=== PATIENT | male | born 1980 | race African-American/Black ===

== ENCOUNTER → 2016-09-19 | Outpatient (CLI) | payer OTHER ==
--- NOTE | 2016-09-29 02:13 | ECWPNPC ---
PATIENT NAME: BARBARA ANDERSON : 1980 GENDER: MALE VISIT DATE: 09/19/2016 DISCHARGE DATE: 09/19/16 1348 VISIT LOCKED DATE TIME: PHYSICIAN: ANUP GLOVER RESOURCE: ANUP GLOVER REASON FOR APPOINTMENT 1. NECK PAIN HISTORY OF PRESENT ILLNESS HISTORY OF PRESENT ILLNESS: PAIN THE PATIENT DESCRIBES THE PAIN... THE PATIENT DESCRIBES THE PAIN... 36 YEAR OLD MALE PATIENT WITH CHRONIC NECK PAIN. PATIENT DESCRIBES THE PAIN ACHING AND SORE WITH A PAIN SCORE OF 7/10. THE PATIENT RECEIVED A CERVICAL FACET BLOCK LEFT ON 07/24/2016, PATIENT STATES HIS PAIN SCORE WAS 7/10 PRE INJECTION AND 5/10 POST INJECTION. THE PATIENT RECEIVED A CERVICAL FACET BLOCK RIGHT ON 07/26/2016, PATIENT STATES HIS PAIN SCORE WAS 6/10 PRE INJECTION AND 5/10 POST INJECTION. PATIENT REPORTS OF HAVING SOME PAIN RELIEF FROM THE INJECTION. PATIENT ALSO REPORTS THAT HIS PAIN SCORE WENT UP TO A 8/10 WHEN HE PUT A HELMET ON AT WORK. PATIENT STATES THAT WHEN HIS NECK PAIN GOES DOWN, HIS HEADACHES ALSO GO DOWN. PATIENT STATES THAT HIS NECK PAIN RADIATES TO HIS HEAD. PATIENT REPORTS OF HAVING MORE PATIENT RELIEF WITH THE FACET BLOCKS COMPARED TO THE EPIDURALS HE HAS RECEIVED IN THE PAST. PATIENT DENIES UNEXPLAINABLE WEIGHT LOSS, FEVER, CHILLS, NEW CHANGES ON HIS URINARY OR BOWEL CONTROL. RATING PAIN VAS 6/10.PAIN RADIATES FROM NECK UP OCCIPITA NERVE ROUTE AND CAUSES SEVERE OCCIPITAL HEADACHE.THIS IS AGGREVATED WHEN HE PUTS ON [employer] HELMET.DISCUSSED TREATMENT OPTIONS. FALL RISK SCREENING: SCREENING :NO FALLS IN THE PAST YEAR CURRENT MEDICATIONS TAKING CYCLOBENZAPRINE HCL 10 MG TABLET 1 TABLET ORALLY THREE TIMES A DAY NEEDED FOR SPASMS AND PAIN TAKING NORTRIPTYLINE HCL 25 MG CAPSULE (PRIOR AUTH: RX REF#:[id number]) ORALLY AT BEDTIME TAKING ZONISAMIDE 100 MG CAPSULE (PRIOR AUTH: RX REF#:[id number]) ORALLY BID TAKING IBUPROFEN 800 MG TABLET 1 TAB ORALLY BID NEEDED TAKING TIZANIDINE HCL 2 MG TABLET 1 TABLET NEEDED ORALLY TWICE DAILY TAKING BUPROPION HCL 75 MG TABLET 2 TABLETS ORALLY TWICE A DAY TAKING BUSPIRONE HCL 10 MG TABLET 1 TABLET ORALLY TWICE A DAY TAKING VIAGRA 100 MG TABLET 1 TABLET ORALLY ONCE A DAY NEEDED TAKING SERTRALINE HCL 25 MG TABLET 1 TABLET ORALLY ONCE A DAY MEDICATION LIST REVIEWED AND RECONCILED WITH THE PATIENT PAST MEDICAL HISTORY HEADACHES DIZZINESS CERVICAL SPONDYLOSIS RADIATION OF PAIN INTO LET ARM RADIATION OF PAIN INTO RIGHT ARM REVIEW OF SYSTEMS CONSTITUTIONAL: ANY CHANGE IN YOUR MEDICAL CONDITION? NO . CHILLS NO . FEVER NO . INFECTION: DO YOU HAVE NEW INFECTIONS? NO . DO YOU HAVE HISTORY OF MRSA? NO . MUSCULOSKELETAL: ANY NEW PATTERNS OF PAIN OR NUMBNESS? NO . GASTROENTEROLOGY: ANY NEW CHANGE IN BOWEL CONTROL? NO . GENITOURINARY: ANY NEW CHANGE IN BLADDER CONTROL? NO . IS THERE A CHANCE YOU COULD BE ? NO . HEMATOLOGY/LYMPH: DO YOU TAKE ANY BLOOD THINNERS? (FOR EXAMPLE- COUMADIN, PLAVIX, AGGRENOX, PLATEL, PRADAXA, OR XARELTO) NO . WHEN WAS YOUR LAST DOSE? DATE: TIME: . NEUROLOGY: HAVE YOU FALLEN IN THE PAST 6 MONTHS? NO . ANY NEW EXTREMITY NUMBNESS OR WEAKNESS? NO . CARDIOLOGY: DO YOU HAVE A PACEMAKER OR DEFIBRILLATOR? NO . RESPIRATORY: HAVE YOU BEEN SICK IN THE PAST WEEK? NO . FEVER NO . FLU LIKE SYMPTOMS? NO . COUGH NO . INTEGUMENTARY: DO YOU HAVE ANY RASHES OR OPEN SORES? NO . ALLERGIC/IMMUNO: ARE YOU ALLERGIC TO SHELLFISH OR IV DYE? NO . ANY NEW ALLERGIES? NO . PSYCHIATRIC: DO YOU HAVE THOUGHTS OF HURTING YOURSELF OR SOMEONE ELSE? NO . ARE YOU ABUSED, NEGLECTED, OR IN AN UNSAFE ENVIRONMENT? NO . ENDOCRINOLOGY: ARE YOU DIABETIC? NO . OTHER: DO YOU NEED ANY PRESCRIPTIONS? NO . IF YES, PLEASE LIST: ____ . ANY NEW PROBLEMS WITH YOUR MEDICATIONS? NO . WHEN DID YOU LAST EAT? ____ . WHEN DID YOU LAST DRINK? ____ . WHAT DID YOU LAST DRINK? ____ . NAME OF PERSON DRIVING YOU HOME? ____ . DO YOU HAVE ANY OTHER QUESTIONS OR CONCERNS NO . REVIEWED BY: PROVIDER: ANUP HAYES . VITAL SIGNS WT 140 LBS, HT 69 IN, BMI 20.67 INDEX, BP 138/76 MM HG, HR 87 /MIN, RR 16 /MIN, TEMP 96.0 F, OXYGEN SAT % 100, NA INITIALS TL 1310, REVIEWED BY: AM. EXAMINATION GENERAL EXAMINATION: HEENT:SPECIFIC POINT TENDERNESS OVER OCCIPITAL NERVE ROUTES BILAT.. NECK:NO LYMPHADENOPATHY, NO MASS. LUNGS:LUNG SOUNDS ARE CLEAR.RESP. NON LABORED. HEART:HEART RATE REGULAR.NO MURMUR. 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 OTHERS NOTES: SYMPATHETIC NERVE BLOCK MATERIAL WAS PRINTED. PROCEDURE CODES FA211 ESTABILISHED PATIENT [facility] FACILITY CHARGE FOLLOW UP 2WK POST (REASON: BILAT. OCCIPITAL NERVE BLOCK) ELECTRONICALLY SIGNED BY FREDDY RAMÍREZ ON 09/28/2016 AT 01:29 PM EST DISCLAIMER : THIS IS A VISIT SUMMARY EXTRACTED FROM THE [employer] CHART. IT IS NOT A COPY OF THE [employer] PROGRESS NOTE. MACARIO
== END ==
LOC: M PAIN 13:20
PROVIDERS: ATTEND Nurse Practitioner Family
DX: Z09 Encounter for follow-up examination after completed treatment for conditions other than malignant neoplasm (principal); M54.81 Occipital neuralgia; G89.29 Other chronic pain; M47.812 Spondylosis without myelopathy or radiculopathy, cervical region; R51 Headache; Z79.1 Long term (current) use of non-steroidal anti-inflammatories (NSAID); Z79.899 Other long term (current) drug therapy

== ENCOUNTER → 2016-10-10 | Outpatient (CLI) | payer OTHER ==
[~2016-10-10] MED LIST: BUPIVACAINE HCL 0.25% 10 ML VIAL As Ordered ONE; BUPIVACAINE HCL 0.25% 30 ML VIAL As Ordered ONE; TRIAMCINOLONE ACETONIDE SUSP 40 MG/ML VIAL (J3301) As Ordered ONE
--- NOTE | 2016-10-12 00:21 | ECWPNPC ---
PATIENT NAME: BARBARA ANDERSON : 1980 GENDER: MALE VISIT DATE: 10/10/2016 DISCHARGE DATE: 10/10/16 1353 VISIT LOCKED DATE TIME: PHYSICIAN: MATHEW VALDEZ RESOURCE: MATHEW VALDEZ REASON FOR APPOINTMENT 1. OCCIPITAL NERVE BLOCK, HISTORY OF PRESENT ILLNESS HISTORY OF PRESENT ILLNESS: PAIN THE PATIENT DESCRIBES THE PAIN... FALL RISK SCREENING: SCREENING :NO FALLS IN THE PAST YEAR CURRENT MEDICATIONS TAKING CYCLOBENZAPRINE HCL 10 MG TABLET 1 TABLET ORALLY THREE TIMES A DAY NEEDED FOR SPASMS AND PAIN, NOTES: 10-07-16 TAKING NORTRIPTYLINE HCL 25 MG CAPSULE (PRIOR AUTH: RX REF#:[id number]) ORALLY AT BEDTIME, NOTES: 10-09-16 TAKING ZONISAMIDE 100 MG CAPSULE (PRIOR AUTH: RX REF#:[id number]) ORALLY BID, NOTES: NONE TAKING IBUPROFEN 800 MG TABLET 1 TAB ORALLY BID NEEDED, NOTES: 10-09-16 PM TAKING TIZANIDINE HCL 2 MG TABLET 1 TABLET NEEDED ORALLY TWICE DAILY, NOTES: NONE TAKING BUPROPION HCL 75 MG TABLET 2 TABLETS ORALLY TWICE A DAY, NOTES: 10-09-16 2100 TAKING BUSPIRONE HCL 10 MG TABLET 1 TABLET ORALLY TWICE A DAY, NOTES: 10-09-16 2100 TAKING VIAGRA 100 MG TABLET 1 TABLET ORALLY ONCE A DAY NEEDED, NOTES: NONE TAKING SERTRALINE HCL 25 MG TABLET 1 TABLET ORALLY ONCE A DAY, NOTES: 10-07-16 MEDICATION LIST REVIEWED AND RECONCILED WITH THE PATIENT PAST MEDICAL HISTORY HEADACHES DIZZINESS CERVICAL SPONDYLOSIS RADIATION OF PAIN INTO LET ARM RADIATION OF PAIN INTO RIGHT ARM ALLERGIES N.K.D.A. SOCIAL HISTORY GENERAL: TOBACCO USE ARE YOU A:NONSMOKER LEARNING BARRIERS / SPECIAL NEEDS ORIENTED TO PLAN OF CARE: PATIENT, PAIN MANAGEMENT PATIENT, ORIENTED TO PLAN OF CARE: PATIENT, PAIN MANAGEMENT PATIENT. NEW PATIENT PAIN DIARY TODAY'S VISITNOTES FROM 0-10, WHAT LEVEL IS YOUR PAIN TODAY?0 PAIN CLINIC PFS, CLERGY, PUBLIC HEALTH REFERRALS PFS REFERRAL NEEDED?NO CLERGY REFERRAL NEEDED?NO PUBLIC HEALTH REFERRAL NEEDED?NO WAS THE PROVIDER NOTIFIED OF ANY PERTINENT INFO?NO PFS REFERRAL NEEDED?NO CLERGY REFERRAL NEEDED?NO PUBLIC HEALTH REFERRAL NEEDED?NO WAS THE PROVIDER NOTIFIED OF ANY PERTINENT INFO?NO REVIEW OF SYSTEMS CONSTITUTIONAL: ANY CHANGE IN YOUR MEDICAL CONDITION? NO . CHILLS NO . FEVER NO . INFECTION: DO YOU HAVE NEW INFECTIONS? NO . DO YOU HAVE HISTORY OF MRSA? NO . MUSCULOSKELETAL: ANY NEW PATTERNS OF PAIN OR NUMBNESS? NO . GASTROENTEROLOGY: ANY NEW CHANGE IN BOWEL CONTROL? NO . GENITOURINARY: ANY NEW CHANGE IN BLADDER CONTROL? NO . IS THERE A CHANCE YOU COULD BE ? NO . HEMATOLOGY/LYMPH: DO YOU TAKE ANY BLOOD THINNERS? (FOR EXAMPLE- COUMADIN, PLAVIX, AGGRENOX, PLATEL, PRADAXA, OR XARELTO) NO . WHEN WAS YOUR LAST DOSE? DATE: TIME: . NEUROLOGY: HAVE YOU FALLEN IN THE PAST 6 MONTHS? NO . ANY NEW EXTREMITY NUMBNESS OR WEAKNESS? NO . CARDIOLOGY: DO YOU HAVE A PACEMAKER OR DEFIBRILLATOR? NO . RESPIRATORY: HAVE YOU BEEN SICK IN THE PAST WEEK? NO . FEVER NO . FLU LIKE SYMPTOMS? NO . COUGH NO . INTEGUMENTARY: DO YOU HAVE ANY RASHES OR OPEN SORES? NO . ALLERGIC/IMMUNO: ARE YOU ALLERGIC TO SHELLFISH OR IV DYE? NO . ANY NEW ALLERGIES? NO . PSYCHIATRIC: DO YOU HAVE THOUGHTS OF HURTING YOURSELF OR SOMEONE ELSE? NO . ARE YOU ABUSED, NEGLECTED, OR IN AN UNSAFE ENVIRONMENT? NO . ENDOCRINOLOGY: ARE YOU DIABETIC? NO . OTHER: DO YOU NEED ANY PRESCRIPTIONS? NO . IF YES, PLEASE LIST: ____ . ANY NEW PROBLEMS WITH YOUR MEDICATIONS? NO . WHEN DID YOU LAST EAT? 10-09-16 PM . WHEN DID YOU LAST DRINK? 10-10-16 . WHAT DID YOU LAST DRINK? WATER . NAME OF PERSON DRIVING YOU HOME? . DO YOU HAVE ANY OTHER QUESTIONS OR CONCERNS NO . REVIEWED BY: PROVIDER: . VITAL SIGNS WT 144 LBS, HT 69 IN, BMI 21.26 INDEX, BP 127/78 MM HG, HR 86 /MIN, RR 16 /MIN, TEMP 98.0 F, OXYGEN SAT % 98, NA INITIALS TL 1300, REVIEWED BY: CM. ASSESSMENTS OCCIPITAL NEURALGIA - M54.81 (PRIMARY) PROCEDURES PN OCCIPITAL NERVE BLOCK GREATER PRE PROCEDURE DIAGNOSIS OCCIPITAL NEURALGIA POST PROCEDURE DIAGNOSIS OCCIPITAL NEURALGIA PROCEDURE BILATERAL GREATER OCCIPITAL NERVE BLOCK SURGEON DR. MATHEW VALDEZ ACADEMIC ASSOCIATE NONE ANESTHESIA LOCAL PRE PROCEDURE NOTE 36 YEAR-OLD PATIENT WITH HISTORY OF CHRONIC OCCIPITAL PAIN. THE PAIN IS LOCATED OVER THE OCCIPITAL AREA WITH RADIATION TOWARDS THE PARIETAL AREA OF THE CRANIUM. I EVALUATED THE PATIENT AND REVIEWED THE CHART. I WENT OVER THE RISKS, ALTERNATIVES, AND BENEFITS ASSOCIATED WITH THIS PROCEDURE. THE PATIENT WOULD LIKE TO PROCEED AND GAVE CONSENT TO PERFORM THE PROCEDURE. THE PATIENT DENIES UNEXPLAINABLE WEIGHT LOSS, FEVER, CHILLS, OR NEW CHANGES IN URINARY OR BOWEL CONTROL DESCRIPTION OF PROCEDURE THE PATIENT WAS BROUGHT TO THE PROCEDURE ROOM AND PLACED IN THE SITTING POSITION. THE BILATERAL OCCIPITAL AREA WAS CLEANED WITH ALCOHOL. THE PROCEDURE WAS DONE USING STERILE TECHNIQUES. I CHECKED LATERALITY AND THE LEVEL WHERE THE PROCEDURE WAS GOING TO BE PERFORMED WITH THE PATIENT AND THE SUPPORTING STAFF AT THE MOMENT OF THE TIME OUT IN THE PROCEDURE ROOM. USING A 25-GAUGE NEEDLE, THE BILATERAL OCCIPITAL NERVE WAS INJECTED AT THE NUCHAL LINE, 1-INCH LATERAL OF MIDLINE. I USED A TOTAL OF 15 ML OF BUPIVACAINE 0.25% WITH KENALOG 20 MG AT EACH NERVE. THERE WAS NO EVIDENCE OF BLOOD, PARESTHESIA OR CEREBROSPINAL FLUID DURING THE PROCEDURE. THE PATIENT WAS SENT TO THE RECOVERY ROOM. THE PATIENT WAS MOVING THE EXTREMITIES AND DOING WELL. THERE WAS NO COMPLICATION DURING THE PROCEDURE POST PROCEDURE NOTE THE PATIENT WILL BE SEEN IN A FOLLOW UP IN THE NEXT FEW WEEKS. INSTRUCTIONS WERE GIVEN, QUESTIONS WERE ANSWERED, AND THE PATIENT EXPRESSED UNDERSTANDING AND AGREED WITH THE PLAN. I, AMARILYS VALENTINO, DOCUMENTED THE ABOVE INFORMATION ACTING A SCRIBE FOR DR. VALDEZ. I, DR. VALDEZ, HAVE REVIEWED THE ABOVE DOCUMENT, SCRIBED BY AMARILYS VALENTINO, AND I VERIFY THAT IT IS ACCURATE PROCEDURE CODES 80874 N BLOCK INJ OCCIPITAL FOLLOW UP 3 WEEKS ELECTRONICALLY SIGNED BY MATHEW VALDEZ MD ON 10/11/2016 AT 08:49 PM EST DISCLAIMER : THIS IS A VISIT SUMMARY EXTRACTED FROM THE [employer] CHART. IT IS NOT A COPY OF THE [employer] PROGRESS NOTE. MTDJenny
== END ==
LOC: M PAIN 13:00
PROVIDERS: ATTEND Anesthesiology
DX: G89.29 Other chronic pain (principal); M54.81 Occipital neuralgia; Z79.899 Other long term (current) drug therapy
CPT/HCPCS: 64405; J3301

== ENCOUNTER → 2016-11-01 | Outpatient (REF) ==
--- NOTE | 2016-11-01 15:09 | REP ---
CERVICAL SPINE: HISTORY: Degenerative disc disease. COMPARISON: 06/01/2016 There is no acute fracture or subluxation. The C5-6 intervertebral disc is decreased in height consistent with disc degeneration. Osteophytes are present on C2 through C7. The neural foramina are not well seen. IMPRESSION: Degenerative change as described above. Signed by Leroy Serrato MD 11/01/2016 03:10 P
--- NOTE | 2016-11-01 15:13 | REP ---
BILATERAL SHOULDER SERIES: Bilateral shoulder series is performed, with three views obtained bilaterally. There is no evidence of acute fracture or dislocation. Joint spaces appear normal. There is no intrinsic osseous pathology. IMPRESSION: Negative exam bilateral shoulders. Signed by Bryce Martinez MD 11/02/2016 06:28 P
--- NOTE | 2016-11-01 15:14 | REP ---
Thoracic spine, three views: History: Degenerative disc disease. There is no acute fracture or subluxation. There is minimal loss of height of a mid thoracic vertebral body. The intervertebral discs are normal in height. IMPRESSION: There is no acute fracture or subluxation. Signed by Leroy Serrato MD 11/01/2016 03:15 P
--- NOTE | 2016-11-01 15:15 | REP ---
BILATERAL KNEE SERIES: Five views of bilateral knees performed. There is no evidence of acute fracture or dislocation bilaterally. Joint spaces appear normal. There is no joint effusion bilaterally. There is a unfused ossicle at the anterior tibial tubercle on the right. IMPRESSION: Essentially negative bilateral knee series. Signed by Bryce Martinez MD 11/02/2016 06:28 P
--- NOTE | 2016-11-01 15:17 | REP ---
LUMBAR SPINE, THREE VIEWS: HISTORY: Degenerative disc disease. COMPARISON: 06/01/2016 There is no acute fracture or subluxation. The intervertebral discs are normal in height. IMPRESSION: There is no acute fracture or subluxation. Signed by Leroy Serrato MD 11/01/2016 03:24 P
== END ==
LOC: M SMT 12:55
PROVIDERS: ATTEND Internal Medicine
DX: Z02.71 Encounter for disability determination (principal)

== ENCOUNTER → 2016-11-14 | Outpatient (CLI) | payer OTHER ==
--- NOTE | 2016-11-15 00:21 | ECWPNPC ---
PATIENT NAME: BABRARA ANDERSON : 1980 GENDER: MALE VISIT DATE: 11/14/2016 DISCHARGE DATE: 11/14/16 1026 VISIT LOCKED DATE TIME: PHYSICIAN: ANUP GLOVER RESOURCE: ANUP GLOVER REASON FOR APPOINTMENT 1. POST PROCEDURE HISTORY OF PRESENT ILLNESS FALL RISK SCREENING: HERE FOR POST PROC. F/U.HAD BILAT.GREATER OCCIPITAL NERVE BLOCK ON 10-10-16.REPORTS SIGNIFICANT IMPROVEMENT IN PAIN ECSPECIALLY TWO WEEKS POST PROCEDURE AND SOME IMPROVEMENT CONTINUES TODAY.RATING PAIN VAS 5/10.USING FLEXERIL 10MG TID WHICH HE FINDS HELPFUL.DENIES SIDE EFFECTS WITH MEDICATION.DISCUSSED TREATMENT OPTIONS. SCREENING :NO FALLS IN THE PAST YEAR CURRENT MEDICATIONS TAKING CYCLOBENZAPRINE HCL 10 MG TABLET 1 TABLET ORALLY THREE TIMES A DAY NEEDED FOR SPASMS AND PAIN TAKING NORTRIPTYLINE HCL 25 MG CAPSULE (PRIOR AUTH: RX REF#:[id number]) ORALLY AT BEDTIME TAKING ZONISAMIDE 100 MG CAPSULE (PRIOR AUTH: RX REF#:[id number]) ORALLY BID TAKING IBUPROFEN 800 MG TABLET 1 TAB ORALLY BID NEEDED TAKING BUPROPION HCL 75 MG TABLET 2 TABLETS ORALLY TWICE A DAY TAKING BUSPIRONE HCL 10 MG TABLET 1 TABLET ORALLY TWICE A DAY TAKING VIAGRA 100 MG TABLET 1 TABLET ORALLY ONCE A DAY NEEDED, NOTES: NONE TAKING SERTRALINE HCL 25 MG TABLET 1 TABLET ORALLY ONCE A DAY NOT-TAKING TIZANIDINE HCL 2 MG TABLET 1 TABLET NEEDED ORALLY TWICE DAILY, NOTES: NONE MEDICATION LIST REVIEWED AND RECONCILED WITH THE PATIENT PAST MEDICAL HISTORY HEADACHES DIZZINESS CERVICAL SPONDYLOSIS RADIATION OF PAIN INTO LET ARM RADIATION OF PAIN INTO RIGHT ARM SOCIAL HISTORY GENERAL: TOBACCO USE ARE YOU A:NONSMOKER LEARNING BARRIERS / SPECIAL NEEDS ORIENTED TO PLAN OF CARE: PATIENT, PAIN MANAGEMENT PATIENT, ORIENTED TO PLAN OF CARE: PATIENT, PAIN MANAGEMENT PATIENT. NEW PATIENT PAIN DIARY TODAY'S VISITNOTES FROM 0-10, WHAT LEVEL IS YOUR PAIN TODAY?0 PAIN CLINIC PFS, CLERGY, PUBLIC HEALTH REFERRALS PFS REFERRAL NEEDED?NO CLERGY REFERRAL NEEDED?NO PUBLIC HEALTH REFERRAL NEEDED?NO WAS THE PROVIDER NOTIFIED OF ANY PERTINENT INFO?NO PFS REFERRAL NEEDED?NO CLERGY REFERRAL NEEDED?NO PUBLIC HEALTH REFERRAL NEEDED?NO WAS THE PROVIDER NOTIFIED OF ANY PERTINENT INFO?NO REVIEW OF SYSTEMS CONSTITUTIONAL: ANY CHANGE IN YOUR MEDICAL CONDITION? NO . CHILLS NO . FEVER NO . INFECTION: DO YOU HAVE NEW INFECTIONS? NO . DO YOU HAVE HISTORY OF MRSA? NO . MUSCULOSKELETAL: ANY NEW PATTERNS OF PAIN OR NUMBNESS? NO . GASTROENTEROLOGY: ANY NEW CHANGE IN BOWEL CONTROL? NO . GENITOURINARY: ANY NEW CHANGE IN BLADDER CONTROL? NO . IS THERE A CHANCE YOU COULD BE ? NO . HEMATOLOGY/LYMPH: DO YOU TAKE ANY BLOOD THINNERS? (FOR EXAMPLE- COUMADIN, PLAVIX, AGGRENOX, PLATEL, PRADAXA, OR XARELTO) NO . WHEN WAS YOUR LAST DOSE? DATE: TIME: . NEUROLOGY: HAVE YOU FALLEN IN THE PAST 6 MONTHS? NO . ANY NEW EXTREMITY NUMBNESS OR WEAKNESS? NO . CARDIOLOGY: DO YOU HAVE A PACEMAKER OR DEFIBRILLATOR? NO . RESPIRATORY: HAVE YOU BEEN SICK IN THE PAST WEEK? NO . FEVER NO . FLU LIKE SYMPTOMS? NO . COUGH NO . INTEGUMENTARY: DO YOU HAVE ANY RASHES OR OPEN SORES? NO . ALLERGIC/IMMUNO: ARE YOU ALLERGIC TO SHELLFISH OR IV DYE? NO . ANY NEW ALLERGIES? NO . PSYCHIATRIC: DO YOU HAVE THOUGHTS OF HURTING YOURSELF OR SOMEONE ELSE? YES MUSCLE RELAXER . ARE YOU ABUSED, NEGLECTED, OR IN AN UNSAFE ENVIRONMENT? NO . ENDOCRINOLOGY: ARE YOU DIABETIC? NO . OTHER: DO YOU NEED ANY PRESCRIPTIONS? NO . IF YES, PLEASE LIST: ____ . ANY NEW PROBLEMS WITH YOUR MEDICATIONS? NO . WHEN DID YOU LAST EAT? ____ . WHEN DID YOU LAST DRINK? ____ . WHAT DID YOU LAST DRINK? ____ . NAME OF PERSON DRIVING YOU HOME? ____ . DO YOU HAVE ANY OTHER QUESTIONS OR CONCERNS NO . REVIEWED BY: PROVIDER: ANUP HAYES . VITAL SIGNS WT 143.8 LBS, HT 69 IN, BMI 21.23 INDEX, BP 118/79 MM HG, HR 64 /MIN, RR 16 /MIN, TEMP 96.3 F, OXYGEN SAT % 97%, NA INITIALS SC 10:03. EXAMINATION GENERAL EXAMINATION: HEENT:SPECIFIC POINT TENDERNESS OVER OCCIPITAL NERVE ROUTES BILAT.. NECK:NO LYMPHADENOPATHY, NO MASS. LUNGS:LUNG SOUNDS ARE CLEAR.RESP. NON LABORED. HEART:HEART RATE REGULAR.NO MURMUR. 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 IT IS NOT A COPY OF THE [employer] PROGRESS NOTE. KHANHD
== END ==
LOC: M PAIN 09:20
PROVIDERS: ATTEND Nurse Practitioner Family
DX: M54.81 Occipital neuralgia (principal); M47.812 Spondylosis without myelopathy or radiculopathy, cervical region; M50.120 Mid-cervical disc disorder, unspecified level; M50.13 Cervical disc disorder with radiculopathy, cervicothoracic region; M79.1 Myalgia; G89.29 Other chronic pain; Z79.899 Other long term (current) drug therapy